=== PATIENT | female | born 1940 | race Two or more races ===

== ENCOUNTER 2020-08-14 12:58 | Outpatient (REF) | payer MEDICARE, SELFPAY ==
--- NOTE | ~2020-08-14 | MM_ITS ---
EXAMINATION: MM SCREENING DIGITAL BREAST TOMOSYNTHESIS, BILATERAL CLINICAL INFORMATION: Screening. Asymptomatic. Left lumpectomy for breast cancer 2005. COMPARISON: Mammography: 08/03/2019, 02/09/2018, 09/04/2016 TECHNIQUE: Digital breast tomosynthesis is performed in both the craniocaudal and mediolateral oblique views along with computer-aided detection (CAD). Synthesized 2D images are generated from the tomosynthesis. Additional right CC view is provided. FINDINGS: There are scattered areas of fibroglandular density (ACR BI-RADS breast composition Category b). Parenchymal pattern is similar to prior exams. There are old stable post therapy changes left breast with mild reduced breast size, surgical clips, and mild scarring. Neither breast shows interval mass or architectural abnormality or abnormal calcifications. MM/MM tomosynthesis screening BI IMPRESSION: No mammographic evidence of malignancy. Post therapy changes left breast. ASSESSMENT: BI-RADS 2: Benign RECOMMENDATION: Routine annual mammography screening. This patient's information was entered into a reminder system with a target due date for their next mammogram.
== END 2020-08-14 12:59 | disposition home or self-care (01) ==
LOC: HO.MAMMO 12:58
PROVIDERS: Visit Provider Family Medicine
DX: Z12.31 Encounter for screening mammogram for malignant neoplasm of breast (principal)
CPT/HCPCS: 77063; 77067

== ENCOUNTER → 2024-01-21 11:55 | Outpatient (RCR) | payer MEDICARE, SELFPAY ==
[2020-08-16 09:25] VITALS: BP 120/61; PULSE 119; RESP 12; TEMP 36.1; O2SAT 99; BMI 33.5
--- NOTE | 2020-08-16 09:43 | P.PNHO_ITS ---
Medical Summary - Medical Summary Date of Service: 08/16/20 Chief complaint: Left Breast cancer. Medical Summary: DIAGNOSIS: Infiltrating ductal carcinoma of the left breast, moderate to poorly differentiated, 2.5 cm, ER/DE positive, HER2/christopher negative, sentinel node negative. THERAPY: 1. Status post lumpectomy on March 13, 2005. 2. Dose-dense AC at [facility]. 3. Arimidex started on August 24, 2005 and completed on March of 2012. Interval History Interval history: This is a delightful 79 year-old lady, here for a follow-up visit. She has been doing extremely well, physically. However she is rather sad. Her 5 days ago. He had heart disease. He was on hospice. She denies any changes in her medical history recently. Only change in her medication is that she was started on vitamin-D supplement, for a low vitamin-D level. She is feeling tired. She denies any breast related complaints. No chest pain or trouble breathing. No abdominal pain nausea vomiting heartburn indigestion. Her bowels are moving, without any gross blood. Her appetite is not that great. She has lost some weight. Her spirits are down. The rest of the review of systems is unremarkable. She tells me she is moving to [place] with to be with her daughters. She will be leaving over the weekend. Review of Systems - Constitutional Reports system reviewed and no additional complaints, except as documented, Reports lack of energy, Reports weight loss, Denies body ache(s) - Eyes Reports system reviewed and no additional complaints, except as documented, Denies change in vision - ENT Reports system reviewed and no additional complaints, except as documented - Cardiovascular Reports system reviewed and no additional complaints, except as documented, Denies chest pain with activity - Respiratory Reports no additional respiratory complaints, Denies chest congestion - Gastrointestinal Reports system reviewed and no additional complaints, except as documented, Denies abdominal pain, Denies belching, Denies change in bowel habits - Genitourinary Reports no additional female genitourinary complaints, Denies vaginal discharge - Musculoskeletal Reports system reviewed and no additional complaints, except as documented, Denies back pain - Integumentary/Breasts Skin/Breast: Reports no additional skin complaints, Denies bleeding lesions - Neurologic Reports system reviewed and no additional complaints, except as documented - Psychiatric Reports system reviewed and no additional complaints, except as documented, Reports abnormal sleep pattern, Reports change in appetite, Reports depression - Endocrine Reports no additional endocrine complaints, Denies cold intolerance - Hematologic/Lymphatic Reports system reviewed and no additional complaints, except as documented, Denies easy bruising - Allergic/Immunologic Reports system reviewed and no additional complaints, except as documented, Denies GI upset with certain foods PMFSH Medical History: Medical History (Last Updated 08/16/20 @ 09:30 by Kourtney Azevedo) Hx of breast cancer Functional capacity: uses cane/walker Patient : No Family History: Family History (Last Updated 08/16/20 @ 09:31 by Kourtney Azevedo) Father Diabetes 1.5, managed as type 1 Sister Diabetes 1.5, managed as type 1 Mother Heart disease Surgical History: Surgical History (Last Updated 08/16/20 @ 09:30 by Kourtney Azevedo) Hx of hysterectomy Hx of lumpectomy Social History: Social History (Last Updated 08/16/20 @ 09:28 by Kourtney Azevedo) Alcohol History: Alcohol intake: former Alcohol History Details: Alcohol intake frequency: does not drink Tobacco History: Smoking Status: Never smoker Substance Use History: Use of substances other than those prescribed or required for medical reasons : No Nutrition Assessment: Patient : No Smoking status: Never smoker Oncology Screenings - ECOG Performance Status ECOG Performance Status: 1 Home Medications and Allergies Home Medications Medication Instructions Recorded Confirmed Type atorvastatin 1 tab PO BEDTIME 08/16/20 08/16/20 History calcium carbonate-vitamin D3 1 tab PO BID 08/16/20 08/16/20 History cholecalciferol (vitamin D3) 2 cap PO DAILY 08/16/20 08/16/20 History propranolol 1 cap PO DAILY 08/16/20 08/16/20 History Allergies Allergy/AdvReac Type Severity Reaction Status Date / Time No Known Allergies Allergy Unverified 02/09/20 15:09 Exam Vital signs: Vital Signs Temp 96.9 F 08/16/20 09:25 Pulse 119 H 08/16/20 09:25 Resp 12 08/16/20 09:25 BP 120/61 08/16/20 09:25 Pulse Ox 99 08/16/20 09:25 Intake & Output 08/15/20 08/16/20 08/16/20 18:59 06:59 18:59 Other: Weight 85.8 kg [place] Weight in Grams [id number] Weight 85.8 kg Body Mass Index 33.5 - Constitutional Present: no acute distress - Routine HEENT Exam Head: Present: normal inspection Eye: Present: normal appearance ENT: Present: mucous membranes moist - Routine Neck Exam Present: full ROM - Routine Respiratory Exam Present: CTAB - Routine Cardiovascular Exam Cardiovascular: Present: RRR, S1, S2 - Routine Abdominal Exam Present: soft, nontender - Routine Rectal Exam Patient deferred: digital exam - Routine Extremities Exam Present: nontender - Routine Back/Spine/Pelvis Exam Back/Spine: Present: full ROM - Routine Skin Exam Present: intact - Routine Neurological Exam Present: alert, oriented X3 - Routine Psychiatric Exam Present: normal affect Data - Labs CBC & Chem 7: 08/16/20 08:45 08/16/20 08:45 Progress Note: A/P (1) Breast cancer Status: Acute Assessment and plan: 79 year-old lady, with history of Breast Carcinoma, Moderately to Poorly Differentiated, 2.5 cm pT2, pN0 (i-). ER. DE positive, HER-2/christopher negative, sentinel node negative. The patient underwent dose dense A.C. at [facility]. She completed 5 years of Tamoxifen in March 2012. She is currently in remission, and doing very well. Mammo from 08/14/2020: No significant changes from prior exams. Bone density from: 06/13: 1. DIAGNOSIS: Normal bone density based on the lowest T-score value of -0.7 in the femoral neck applying World Health Organization criteria. 2. 10-YEAR FRACTURE RISK PREDICTION, FRAX: According to the guidelines, FRAX calculation should only be performed on patients in the osteopenia bone density category. Therefore, FRAX was not performed on this patient. PLAN: The plan is for her to be followed along. She tells me she is moving to [place]. She will bring her records with her. She will continue to take calcium and vitamin D supplements for her bones. She will continue to attempt to lose weight. I wish her the best of luck. She will call if she needs anything before leaving. Thank you, Please send a copy to: Marta Early. - Time Spent With Patient Total time spent is greater than 50% in coordination of care (as documented) at patient's floor/unit and/or counseling patient: 25 - 35 minutes
[2020-08-16 09:49] LABS: MANUAL DIFF FLAG NO
[2020-08-16 10:08] LABS: Basophils Percent Auto 0.2 % (0-2); Eosinophils Percent Auto 0.7 % (0-4); Hematocrit 37.6 % (37-47); Hemoglobin 12.5 g/dl (12.0-16.0); Imm Gran Abs Auto 0.01 X10*3/uL (0.00-0.03); Imm Gran Pct Auto 0.2 % (0.0-0.4); Lymphocytes Percent Auto 25.3 % (20-40); Mean Corpuscular HGB Conc 33.2 g/dl (31.0-35.0); Mean Corpuscular Hemoglobin 33.7 pg (27.0-33.0); Mean Corpuscular Volume 101.3 fL (80-98); Mean Platelet Volume 8.9 fL (9.4-12.3); Monocytes Absolute Auto 0.3 X10*3/uL (0.1-1.2); Monocytes Percent Auto 6.2 % (2-11); Neutrophils Absolute Auto 2.7 X10*3/uL (2.0-8.3); Neutrophils Percent Auto 67.4 % (45-73); Platelet Count 181 X10*3/uL (160-400); Red Blood Count 3.71 X10*6/uL (4.20-5.50)
[2020-08-16 10:37] LABS: Alanine Aminotransferase 6 U/L (0-31); Albumin Level 3.9 g/dL (3.5-5.0); Alkaline Phosphatase 78 U/L (39-117); Anion Gap 12 (12-20); Aspartate Amino Transferase 14 U/L (5-31); Bilirubin Total 0.4 mg/dL (0.0-1.0); Blood Urea Nitrogen 12 mg/dL (9-16); Calcium 9.3 mg/dL (8.4-10.2); Carbon Dioxide 28 mmol/L (22-29); Chloride 108 mmol/L (96-108); Creatinine Clr Calc Pharmacy 63.9; Estimated Glomerular Filt Rate > 60; Glucose Random 113 mg/dL (60-115); Potassium 3.9 mmol/L (3.3-5.1); Sodium 144 mmol/L (135-145); Total Protein 6.8 g/dL (6.5-8.0)
[2020-08-16 10:59] LABS: Vitamin D 25-OH Total 15.8 ng/mL (>30)
--- NOTE | 2020-08-16 11:12 | MHC.HEMONCMA ---
Pt present to f/u on breast cancer. History reviewed, labs drawn and pt to return in a year.
[2020-08-18 13:16] LABS: CA 27.29 14 U/mL (<38)
== END | disposition home or self-care (01) ==
LOC: HO.ONC 08-16 09:17
PROVIDERS: Visit Provider Internal Medicine Medical Oncology
DX: Z85.3 Personal history of malignant neoplasm of breast (principal); E55.9 Vitamin D deficiency, unspecified; Z79.899 Other long term (current) drug therapy; Z92.21 Personal history of antineoplastic chemotherapy
CPT/HCPCS: 36415; 80053; 82306; 85025; 86300; 99214